=== PATIENT | male | born 1970 | race Caucasian/White ===

== ENCOUNTER → 2019-08-13 13:32 | Outpatient (CLI) | payer BC, SELFPAY | PROVIDERS: PCP Family Medicine; Visit Provider Family Medicine | DX: I10 Essential (primary) hypertension (principal); R06.83 Snoring; E66.9 Obesity, unspecified; G47.33 Obstructive sleep apnea (adult) (pediatric) | CPT/HCPCS: G0399 ==

== ENCOUNTER → 2019-10-31 16:03 | Outpatient (CLI) | payer BC, SELFPAY | PROVIDERS: PCP Family Medicine; Visit Provider Nurse Practitioner Family | DX: G47.33 Obstructive sleep apnea (adult) (pediatric) (principal) | CPT/HCPCS: 94762 ==

== ENCOUNTER → 2019-11-19 16:42 | Outpatient (CLI) | payer BC, SELFPAY ==
[2019-11-19 19:20] LABS: Prostate Specific Ag Screen 1.1 ng/mL (0.0-4.0)
[2019-11-21 15:52] LABS: Estradiol 45.9 pg/mL (7.6-42.6)
== END ==
PROVIDERS: Visit Provider Urology
DX: E34.9 Endocrine disorder, unspecified (principal); Z12.5 Encounter for screening for malignant neoplasm of prostate
CPT/HCPCS: 36415; 82670; G0103

== ENCOUNTER → 2021-01-28 15:57 | Outpatient (CLI) | payer BC, SELFPAY ==
[2021-01-28 17:56] LABS: Alanine Aminotransferase 64 U/L (12-78); Albumin Level 4.7 g/dl (3.5-5.0); Albumin/Globulin Ratio 1.7 (1.1-1.8); Alkaline Phosphatase 51 U/L (38-126); Anion Gap 14.9 mEq/L (5-15); Aspartate Amino Transferase 43 U/L (17-59); Bilirubin,Total 0.3 mg/dl (0.2-1.3); Blood Urea Nitrogen 19 mg/dl (9-20); Calcium 9.4 mg/dl (8.4-10.2); Carbon Dioxide 28 mmol/L (22.0-30.0); Chloride 103 mmol/L (98-107); Estimated Glomerular Filt Rate 71 ml/min (>60); GFR (African American) 86 ML/MIN (>60); Globulin 2.8 g/dL (1.3-3.2); Glucose 97 mg/dl (74-100); Potassium 3.9 mmoL/L (3.5-5.1); Sodium 142 mmol/L (136-145); Total Protein,Serum 7.5 g/dl (6.3-8.2)
[2021-01-28 18:13] LABS: T4 (Thyroxine) 7.2 ug/dl (5.53-11.0)
[2021-01-28 18:27] LABS: Thyroid Stimulating Hormone 2.22 uIU/mL (0.465-4.68)
[2021-01-30 12:24] LABS: Estradiol 36.1 pg/mL (7.6-42.6)
== END ==
PROVIDERS: Visit Provider Urology
DX: E34.9 Endocrine disorder, unspecified (principal)
CPT/HCPCS: 36415; 80053; 82670; 84402; 84403; 84436; 84443

== ENCOUNTER → 2021-11-05 12:09 | Outpatient (CLI) | payer BC, SELFPAY ==
[2021-11-05 13:59] LABS: Adenovirus,PCR Not Detected (NotDetected); Bordetella Pertussis Not Detected (NotDetected); Chlamydophila Pneumoniae, PCR Not Detected (NotDetected); Coronavirus 229E Not Detected (NotDetected); Coronavirus NL63 Not Detected (NotDetected); Coronavirus OC43 Not Detected (NotDetected); Coronovirus HKU1,PCR Not Detected (NotDetected); Human Metapneumovirus Not Detected (NotDetected); Influenza A, PCR Not Detected (NotDetected); Influenza AH1, 2009 Not Detected (NotDetected); Influenza AH1, PCR Not Detected (NotDetected); Influenza AH3,PCR Not Detected (NotDetected); Influenza B, PCR Not Detected (NotDetected); Mycoplasma Pneumoniae, PCR Not Detected (NotDetected); Parainfluenza 1, PCR Not Detected (NotDetected); Parainfluenza 2, PCR Not Detected (NotDetected); Parainfluenza 3, PCR Not Detected (NotDetected); Parainfluenza 4, PCR Not Detected (NotDetected); Respiratory Syncytial Virus Not Detected (NotDetected); Rhinovirus/Enterovirus Not Detected (NotDetected)
[2021-11-05 14:07] LABS: Basophils # 0.1 K/mm3 (0-0.2); Basophils % 1.4 % (0.1-2.0); Eosinophils % 0.5 % (0.1-12.0); Hematocrit 41.2 % (42.0-52.0); Hemoglobin 13.3 g/dL (14.1-18.0); Lymphocytes # 3.2 K/mm3 (0.7-4.5); Lymphocytes % 45.1 % (10-50); Mean Corpuscular HGB Conc 32.2 g/dL (31.8-35.4); Mean Corpuscular Hemoglobin 27.2 pg (27.0-31.2); Mean Corpuscular Volume 84.3 fl (80-94); Mean Platelet Volume 8.1 fl (7.4-10.4); Monocytes # 3.5 K/mm3 (0.1-1.0); Neutrophils # 0.3 K/mm3 (1.8-7.8); Platelet Count 160 K/mm3 (142-424); Red Blood Count 4.89 M/mm3 (4.60-6.20); Red Cell Distribution Width 14.5 % (11.5-17.5); White Blood Count 7.1 K/mm3 (4.8-10.8)
[2021-11-05 14:13] LABS: MANUAL DIFFERENTIAL MANUAL DIFFERENTIAL (MANUAL DIFF)
[2021-11-05 15:43] LABS: Eosinophils % 1 % (0-3); Lymphocytes % 27 % (10-50); Monocytes % 11 % (2-9); Neutrophils % 61 % (42-76); Platelet Estimate Normal; RBC Morphology Normal; Total Cells Counted 100
[2021-11-05 17:01] LABS: Coronavirus 19, PCR Detected (NotDetected)
== END ==
PROVIDERS: PCP Family Medicine; Visit Provider Physician Assistant
DX: U07.1 COVID-19 (principal)
CPT/HCPCS: 36415; 85007; 85025; 87581; 87632; 87798; C9803; U0003; U0005

== ENCOUNTER → 2022-02-02 10:32 | Outpatient (CLI) | payer BC, SELFPAY ==
[2022-02-02 10:38] LABS: MANUAL DIFFERENTIAL MANUAL DIFFERENTIAL (MANUAL DIFF)
[2022-02-02 11:17] LABS: Basophils # 0.1 K/mm3 (0-0.2); Basophils % 1.3 % (0.1-2.0); Eosinophils # 0.2 K/mm3 (0.0-0.4); Eosinophils % 1.8 % (0.1-12.0); Hemoglobin 14.6 g/dL (14.1-18.0); Lymphocytes # 3.4 K/mm3 (0.7-4.5); Lymphocytes % 38.4 % (10-50); Mean Corpuscular HGB Conc 33.2 g/dL (31.8-35.4); Mean Corpuscular Hemoglobin 27.5 pg (27.0-31.2); Mean Corpuscular Volume 82.8 fl (80-94); Mean Platelet Volume 8.8 fl (7.4-10.4); Monocytes # 4.9 K/mm3 (0.1-1.0); Neutrophils # 0.3 K/mm3 (1.8-7.8); Platelet Count 214 K/mm3 (142-424); Red Blood Count 5.32 M/mm3 (4.60-6.20); Red Cell Distribution Width 14.5 % (11.5-17.5); White Blood Count 8.8 K/mm3 (4.8-10.8)
[2022-02-02 11:19] LABS: Neutrophils % 3.5 % (37.0-80.0)
[2022-02-02 11:55] LABS: Alanine Aminotransferase 76 U/L (12-78); Albumin Level 4.4 g/dl (3.5-5.0); Alkaline Phosphatase 55 U/L (38-126); Aspartate Amino Transferase 63 U/L (17-59); Bilirubin,Direct 0.2 mg/dl (0.0-0.4); Bilirubin,Indirect 0.4 mg/dL (0.0-0.9); Bilirubin,Total 0.6 mg/dl (0.2-1.3); Bilirubin,Unconjugated 0.5 mg/dL (0.0-1.1); Total Protein,Serum 7.2 g/dl (6.3-8.2)
[2022-02-02 12:25] LABS: Prostate Specific Ag Screen 1.2 ng/ml (0.0-4.0)
[2022-02-02 14:51] LABS: Eosinophils % 2 % (0-3); Lymphocytes % 13 % (10-50); Monocytes % 24 % (2-9); Neutrophils % 46 % (42-76); Platelet Estimate Normal; Total Cells Counted 100
[2022-02-02 14:52] LABS: Microcytosis 1+
[2022-02-12 11:11] LABS: Testosterone, Total, LC/MS 348.1 ng/dL (264.0-916.0); Testosterone,Free 10.5 pg/mL (7.2-24.0)
== END ==
PROVIDERS: Visit Provider Urology
DX: E29.1 Testicular hypofunction (principal); Z12.5 Encounter for screening for malignant neoplasm of prostate
CPT/HCPCS: 36415; 80076; 84402; 84403; 85007; 85014; 85018; 85048; 85049; G0103

== ENCOUNTER 2024-06-20 17:43 | Emergency (ER) | payer BC, SELFPAY ==
[2024-06-20 18:10] VITALS: BP 136/87; PULSE 99; RESP 22; TEMP 36.8; O2SAT 96; BMI 44.6
[2024-06-20 18:21] LABS: UTC Strep Screen (Rapid) Positive (Negative)
--- NOTE | 2024-06-20 18:30 | ED_ITS ---
Discharge Plan Disposition Patient Disposition: Home, Self-Care Condition: Good Prescriptions Prescriptions: New amoxicillin 875 mg tablet 875 mg PO Q12H Qty: 20 0RF No Action latanoprost 0.005 % drops 1 drp ophthalmic (eye) DAILY meloxicam 7.5 mg tablet 7.5 mg PO QODHS lisinopril-hydrochlorothiazide 10-12.5 mg tablet 1 tab PO DAILY Referrals Follow up/Referrals: Idris Lucio MD [Primary Care Provider] - See instructions Activity Restrictions/Add. Instructions Additional Instructions/Restrictions: *Monitor Temp, Over the counter Motrin or Tylenol as directed/as needed Tylenol every 4 hours and Motrin every 6 hours (as long as your family doctor has told you that you can take it) for fever or pain. and straight to ER if unable to lower temp less than 101.0 after medication given *Warm salt water gargles may help to soothe the throat *Throat Lozenges? *Warm fluids like tea with honey may help to soothe the throat? *Sleep elevated *Humidifier/Vaporizer *If you did not take Penicillin shot or was unable to, start taking antibiotic immediately and make sure that you take it for the FULL length of time although you should start to feel better in 24-48 hours *change toothbrush and toothpaste 24-48 hours after starting to take antibiotics so you do not reinfect yourself Monitor Temp. Tylenol and/or Ibuprofen as needed. ER if fever is no less than 101 despite alternating Tylenol and Ibuprofen * Encourage fluids, water, Gatorade, powerade, pedialyte if infant/toddler/or child *Cold fluids, popsicles and ice cream may feel good on his throat Follow up IMMEDIATELY for new or worsening symptoms or no Noticeable improvement over the next 48-72 hours. 911 for difficulty breathing or swallowing Clinical Impressions Clinical Impression: Strep throat Instructions Patient Instructions: DI for Strep Throat, Strep Throat Print Language Print Language: Kyrgyz Discharge ED Provider: Carissa Lawler [facility] HPI General Stated complaint: body aches,headache,stuffy head,sore throat Mode of Arrival: Ambulatory Source of Information: Patient and Spouse Limitations: No Limitations Time Seen by Provider: 06/20/24 18:37 Description of Symptoms (Recalled from Triage Doc. by RN): PATIENT C/O BODY ACHES, HEADACHE, SORE THROAT AND FEELING LIGHT-HEADED THAT STARTED APPROX 2 WEEKS AGO HEENT Symptoms (Recalled from RN notes): Yes Resp Symptoms (Recalled from RN notes): No Skin Symptoms (Recalled from RN notes): No MS Symptoms (Recalled from RN notes): No Functional Status (Recalled from RN notes): WNL History of Present Illness Provider Complaint: Patient states that he started feeling bad about 2 weeks ago with body aches, chills, nasal congestion and feeling light headed thought he was doing better but today his throat started hurting bad and hurting when he would swallow so this evening he came in to get checked Related Data Home Medications ?Medication ?Instructions ?Recorded ?Confirmed latanoprost 0.005 % eye drops 1 drp ophthalmic (eye) DAILY 06/20/24 06/20/24 lisinopril 10 1 tab PO DAILY 06/20/24 06/20/24 mg-hydrochlorothiazide 12.5 mg tablet meloxicam 7.5 mg tablet 7.5 mg PO QODHS 06/20/24 06/20/24 Previous Rx's ?Medication ?Instructions ?Recorded amoxicillin 875 mg tablet 875 mg PO Q12H #20 tabs 06/20/24 Allergies Allergy/AdvReac Type Severity Reaction Status Date / Time No Known Allergies Allergy Verified 08/17/23 08:41 Worker's Comp Is this a Worker's Comp case?: No [facility] Disclaimer: The information contained in this section may have been updated after the patient was seen, as this information can be updated by other users. Medical History (Updated 06/20/24 @ 18:42 by Carissa Lawler APRN) Glaucoma Hypertension RUDDY (obstructive sleep apnea) Surgical History (Updated 08/17/23 @ 08:43 by Lucy Jose) No pertinent past surgical history Family History Other Cancer Coronary artery disease Hyperlipidemia Hypertension RUDDY (obstructive sleep apnea) Stroke Social History Smoking Status: Former smoker alcohol intake: never substance use type: denies use current occupational status: employed Travel in the last 8 weeks: None household members: spouse and children housing: house ROS Obtained: Yes All systems reviewed & no additional complaints except as documented and Yes Systems reviewed as appropriate & no additional complaints except as documented Constitutional Constitutional: Reports system reviewed and no additional complaints, except as documented, Reports as per HPI, Reports body ache, Reports chills and Reports headache(s) ENT Ears, Nose, Mouth, and Throat: Reports system reviewed and no additional complaints, except as documented, Reports as per HPI, Reports headache(s) and Reports sore throat Cardiovascular Cardiovascular: Reports system reviewed and no additional complaints, except as documented and Reports as per HPI Respiratory Respiratory: Reports system reviewed and no additional complaints, except as documented and Reports as per HPI Gastrointestinal Gastrointestingal: Reports system reviewed and no additional complaints, except as documented and as per HPI Neurologic Neurologic: Reports headache(s) Physical Exam General General appearance: alert and in no apparent distress ENT ENT exam: Present mucous membranes moist Expanded ENT Exam Nose exam: Absent sinus tenderness Throat exam: Present tonsillar erythema (patchy like areas noted) Respiratory Respiratory exam: Present normal lung sounds bilaterally; Absent respiratory distress or wheezes Cardiovascular Cardiovascular exam: Present regular rate, normal rhythm and normal heart sounds Neurological Exam Neurological exam: Present alert, oriented X3 and normal gait Medical Decision Making Denny Inquiry Pt receiving controlled substance: No Denny was queried for this patient: No Vital Signs: 06/20/24 18:10 Temperature 98.2 F Temperature Source Oral Pulse Rate [Right Brachial] 99 H Respiratory Rate 22 Blood Pressure [Right Arm] 136/87 Blood Pressure Mean [Right Arm] 103 Blood Pressure Source [Right Arm] Automatic Cuff Blood Pressure Position [Right Arm] Sitting 02 Sat by Pulse Oximetry 96 Oxygen Delivery Method Room Air Lab Data Lab results reviewed: Yes I reviewed the patient's lab results. Lab Results 06/20/24 18:19: Strep Scn Rapid Clinic Positive A
[2024-06-20 18:43] VITALS: BP 136/87; PULSE 99; RESP 22; TEMP 36.8; O2SAT 96
== END 2024-06-20 18:45 | disposition home or self-care (01) ==
PROVIDERS: Emergency Provider Nurse Practitioner; PCP Family Medicine
DX: J02.0 Streptococcal pharyngitis (principal); R51.9 Headache, unspecified; R42 Dizziness and giddiness; R09.81 Nasal congestion
CPT/HCPCS: 87880; 99204; 99212; G0463

== ENCOUNTER 2025-01-09 13:48 | Emergency (ER) | payer OTHER, SELFPAY ==
[2025-01-09 13:52] VITALS: BP 158/71; PULSE 93; RESP 18; TEMP 36.2; O2SAT 98; BMI 43.9
--- NOTE | 2025-01-09 14:13 | HMH.EDGENADL ---
Discharge Plan Disposition Patient Disposition: Home, Self-Care Condition: Good Prescriptions Prescriptions: No Action cetirizine [Zyrtec] 10 mg tablet 10 mg PO DAILY PRN latanoprost 0.005 % drops 1 drp ophthalmic (eye) DAILY meloxicam 7.5 mg tablet 7.5 mg PO QODHS lisinopril-hydrochlorothiazide 10-12.5 mg tablet 1 tab PO DAILY Referrals Follow up/Referrals: Idris Lucio MD [Primary Care Provider] - See instructions Tito Cuevas DO [Staff Physician] - See instructions (Right knee injury, Worker's Comp.) Clinical Impressions Clinical Impression: Right knee sprain, Work related injury Stand Alone Forms Stand Alone Forms: Work/School Release Instructions Patient Instructions: DI for Knee Sprain Print Language Print Language: Yi Discharge ED Provider: Kedar Santo General Adult HPI <JUANITA Garg - Last Filed: 01/09/25 21:52> General Chief complaint: PAIN Stated complaint: WC- 1030-pain and swelling R knee Time Seen by Provider: 01/09/25 14:13 Mode of Arrival: Wheelchair Source of Information: Patient Description of Symptoms (Recalled from ER Triage Doc. by RN): Pt was stepping off of a skid steer and felt a popping sensation in his right knee at 1030 today History of Present Illness HPI narrative: Patient presents for right knee injury. 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 He was stepping off the machine and extending his right leg to plant and then turned to his left feeling a pop in his left knee. He felt immediate pain and it is continued to hurt him throughout the day. Patient reports its painful to bear weight better when he is sitting. He denies any numbness or tingling loss of motor or sensory. Related Data Home Medications ?Medication ?Instructions ?Recorded ?Confirmed latanoprost 0.005 % eye drops 1 drp ophthalmic (eye) DAILY 06/20/24 08/09/24 lisinopril 10 1 tab PO DAILY 06/20/24 08/09/24 mg-hydrochlorothiazide 12.5 mg tablet meloxicam 7.5 mg tablet 7.5 mg PO QODHS 06/20/24 08/09/24 cetirizine 10 mg tablet (Zyrtec) 10 mg PO DAILY PRN 08/09/24 08/09/24 Allergies Allergy/AdvReac Type Severity Reaction Status Date / Time No Known Allergies Allergy Verified 08/08/24 17:15 PFSH <JUANITA Garg - Last Filed: 01/09/25 21:52> [facility] Disclaimer: The information contained in this section may have been updated after the patient was seen, as this information can be updated by other users. Medical History Glaucoma Hypertension Better today, reports on antihypertensive RUDDY (obstructive sleep apnea) Moderate to severe RUDDY, excellent compliance with AutoPap with ongoing symptomatic improvement. Surgical History No pertinent past surgical history Family History Other Cancer Coronary artery disease Hyperlipidemia Hypertension RUDDY (obstructive sleep apnea) Stroke Social History Smoking Status: Unknown if ever smoked alcohol intake: never substance use type: denies use current occupational status: employed Travel in the last 8 weeks: None household members: spouse and children housing: house Other Medical History Have you received the Pneumonia Vaccine: No <JUANITA Garg - Last Filed: 01/09/25 21:52> ROS Obtained: Yes Systems reviewed as appropriate & no additional complaints except as documented Physical Exam <JUANITA Garg - Last Filed: 01/09/25 21:52> General General appearance: alert and in no apparent distress Respiratory Respiratory exam: Present normal lung sounds bilaterally Cardiovascular Cardiovascular exam: Present regular rate Neurological Exam Neurological exam: Present alert and oriented X3 Medical Decision Making <JUANITA Garg - Last Filed: 01/09/25 21:52> Medical Records Medical records reviewed: Yes I reviewed the patient's medical records. Screening: Per USPSTF and CDC recommendations, given the prevalence of disease in our region, it is our hospital?s policy to screen for HIV and viral Hepatitis for all patients aged 18 and over and those with ongoing risk factors. Denny Inquiry Pt receiving controlled substance: No Vital Signs: 01/09/25 13:52 01/09/25 15:58 01/09/25 17:45 Temperature 97.1 F L 98.2 F Temperature Source Temporal Artery Scan Pulse Rate 85 80 Pulse Rate [Right] 93 H Respiratory Rate 18 20 Blood Pressure 136/70 148/70 H Blood Pressure [Right Arm] 158/71 H Blood Pressure Mean [Right Arm] 100 Blood Pressure Source Blood Pressure Source [Right Arm] Automatic Cuff Blood Pressure Position [Right Arm] Sitting 02 Sat by Pulse Oximetry 98 97 Oxygen Delivery Method Room Air Room Air Room Air 01/09/25 17:47 Temperature 98.2 F Temperature Source Oral Pulse Rate 84 Pulse Rate [Right] Respiratory Rate 18 Blood Pressure 132/77 Blood Pressure [Right Arm] Blood Pressure Mean [Right Arm] Blood Pressure Source Automatic Cuff Blood Pressure Source [Right Arm] Blood Pressure Position [Right Arm] 02 Sat by Pulse Oximetry Oxygen Delivery Method Room Air Orders (Tests/Meds): ORDERS Category Date Time Status CT knee RT wo con Stat Cat Scan 01/09/25 15:59 Completed Knee XR right 3 views [XR knee RT 3V] Stat Exams 01/09/25 14:22 Completed Medical Decision Narrative: In summary patient is a 54-year-old male who presents to the emergency department for evaluation of right knee injury. Patient is hemodynamically stable upon arrival, afebrile. Physical exam is remarkable for tenderness to palpation about the right knee primarily along the joint lines anteriorly and posteriorly. Patient is neurovascular intact distally. Has painful range of motion thus full joint testing not performed to the patient's discomfort. He has full range of motion of the ankle and foot with good DP PT pulses. There is no palpable bony deformity however there appears to be joint fullness indicative of an effusion.. Differential diagnosis includes fracture versus soft tissue injury. Initial workup will be conducted with plain film x-ray initially. Initial interventions include acetaminophen and ibuprofen. Initial workup reviewed by me and my informed interpretation of his plain film chest x-ray shows no evidence of acute bony injury however does show a joint effusion. Given this I have ordered a CT scan noncontrast of the knee joint. My informal TURB rotation of the that imaging does not show any evidence of acute fracture but shows a small joint effusion. Upon repeat evaluation patient is able to bear weight but is very painful. Given this I have given the patient nonweightbearing instructions an Wilman wrap and referred him to orthopedics for further evaluation and care. Patient to be weightbearing as tolerated with his crutches no bending or twisting. Patient to call in the morning for his orthopedics appointment. <Kedar Santo MD - Last Filed: 01/11/25 07:15> Vital Signs: 01/09/25 13:52 01/09/25 15:58 01/09/25 17:45 Temperature 97.1 F L 98.2 F Temperature Source Temporal Artery Scan Pulse Rate 85 80 Pulse Rate [Right] 93 H Respiratory Rate 18 20 Blood Pressure 136/70 148/70 H Blood Pressure [Right Arm] 158/71 H Blood Pressure Mean [Right Arm] 100 Blood Pressure Source Blood Pressure Source [Right Arm] Automatic Cuff Blood Pressure Position [Right Arm] Sitting 02 Sat by Pulse Oximetry 98 97 Oxygen Delivery Method Room Air Room Air Room Air 01/09/25 17:47 Temperature 98.2 F Temperature Source Oral Pulse Rate 84 Pulse Rate [Right] Respiratory Rate 18 Blood Pressure 132/77 Blood Pressure [Right Arm] Blood Pressure Mean [Right Arm] Blood Pressure Source Automatic Cuff Blood Pressure Source [Right Arm] Blood Pressure Position [Right Arm] 02 Sat by Pulse Oximetry Oxygen Delivery Method Room Air Orders (Tests/Meds): ORDERS Category Date Time Status CT knee RT wo con Stat Cat Scan 01/09/25 15:59 Completed Knee XR right 3 views [XR knee RT 3V] Stat Exams 01/09/25 14:22 Completed Medical Decision Narrative: In summary patient is a 54-year-old male who presents to the emergency department for evaluation of right knee injury. Patient is hemodynamically stable upon arrival, afebrile. Physical exam is remarkable for tenderness to palpation about the right knee primarily along the joint lines anteriorly and posteriorly. Patient is neurovascular intact distally. Has painful range of motion thus full joint testing not performed to the patient's discomfort. He has full range of motion of the ankle and foot with good DP PT pulses. There is no palpable bony deformity however there appears to be joint fullness indicative of an effusion.. Differential diagnosis includes fracture versus soft tissue injury. Initial workup will be conducted with plain film x-ray initially. Initial interventions include acetaminophen and ibuprofen. Initial workup reviewed by me and my informed interpretation of his plain film chest x-ray shows no evidence of acute bony injury however does show a joint effusion. Given this I have ordered a CT scan noncontrast of the knee joint. My informal TURB rotation of the that imaging does not show any evidence of acute fracture but shows a small joint effusion. Upon repeat evaluation patient is able to bear weight but is very painful. Given this I have given the patient nonweightbearing instructions an Wilman wrap and referred him to orthopedics for further evaluation and care. Patient to be weightbearing as tolerated with his crutches no bending or twisting. Patient to call in the morning for his orthopedics appointment. I was consulted by the SITA, and we discussed the complexity of the problems being addressed. I approved the treatment and management plan for this patient's care in the Emergency Department, thus performing a substantive portion of the medical decision making. Kedar Santo MD Critical Care <JUANITA Garg - Last Filed: 01/09/25 21:52> Critical Care Time Critical Care Time: No
--- NOTE | 2025-01-09 14:22 | XR_ITS ---
FINAL REPORT CLINICAL HISTORY: Twisted knee hurts to bear weight, HEARD A POP FINDINGS: AP, lateral and oblique views of the right knee were obtained. There is no prior exam for comparison. There is no acute osseous abnormality of the right knee. The joint space is preserved. There may be a small joint effusion. The soft tissues are otherwise unremarkable. IMPRESSION: Possible small joint effusion without acute osseous abnormality identified. Consider MRI if pain persists. Reviewed, Interpreted and Dictated by Antonieta Mosquera MD Transcribed by Ivonne Herron Authenticated and [facility]
[2025-01-09 15:58] VITALS: BP 136/70; PULSE 85; O2SAT 97
--- NOTE | 2025-01-09 15:59 | CT_ITS ---
FINAL REPORT TECHNIQUE: Thin section axial images were obtained through the lower extremity without contrast. Reconstruction images were obtained from the axial data. Exam was performed using dose reduction technique. CLINICAL HISTORY: INJURY, STEPPED WRONG, RT KNEE PAIN FINDINGS: There is no acute fracture. There is mild degenerative joint disease. There is mild lateral patellar subluxation without dislocation. A moderate joint effusion is present. There is prepatellar soft tissue edema. Remaining soft tissues are without acute abnormality. IMPRESSION: Moderate joint effusion without fracture. Consider MRI for evaluation of internal derangement, if indicated. Reviewed, Interpreted and Dictated by Antonieta Mosquera MD Transcribed by Ashwini Gay Authenticated and [facility]
[2025-01-09 17:45] VITALS: BP 148/70; PULSE 80; RESP 20; TEMP 36.8; O2SAT 98
[2025-01-09 17:47] VITALS: BP 132/77; PULSE 84; RESP 18; TEMP 36.8; O2SAT 97
== END 2025-01-09 18:10 | disposition home or self-care (01) ==
PROVIDERS: Emergency Provider Emergency Medicine; PCP Family Medicine
DX: S83.91XA Sprain of unspecified site of right knee, initial encounter (principal); M25.561 Pain in right knee; Y99.0 Civilian activity done for income or pay
CPT/HCPCS: 73562; 73700; 99284

== ENCOUNTER 2025-01-29 10:12 | Outpatient (RCR) | payer OTHER, SELFPAY | END 2025-01-29 23:59 | disposition home or self-care (01) | LOC: PT 10:12 | PROVIDERS: Visit Provider Physician Assistant | DX: M23.91 Unspecified internal derangement of right knee (principal) | CPT/HCPCS: 97760 ==

== ENCOUNTER 2025-05-27 10:49 | Outpatient (CLI) | payer OTHER, SELFPAY ==
--- OUTSIDE RECORDS SUMMARY | 2024-10-04 10:45 | XMS_ITS ---
Author Organization [facility] Address [address] [facility] [address] [place] [id number] Care Team Providers Care Food Taster Name Role Phone Jumana Frank Primary Care Provider [phone] Taco Lucioian Unavailable [phone] Allergies No Known Allergies Results Component Value Reference Range Notes CBC Fingerstick (in house) Reviewed date:10/04/2024 04:35:08 PM Interpretation: Performing Lab: Notes/Report: wbc 9.0 3.5 - 10 lym 25.9% 15 - 50 mid 6.5% 2 - 15 gran 67.6% 35 - 80 rbc 5.30 3.5 - 5.5 hgb 14.3 11.5 - 16.5 hct 42.1 35 - 55 mcv 79.4 75 - 100 mch 26.9 25 - 35 mchc 33.9 31 - 38 plat 188 100 - 400 REASON FOR VISIT cough Medications Medication SIG (Take, Route, Frequency, Duration) Notes Start Date End Date Status Promethazine-DM 6.25-15 MG/5ML 5 ml as needed Orally every 6 hrs 10/04/2024 Active Zithromax Z-Thompson 250 MG as directed Orall y once daily; Duration: 5 day(s) 10/04/2024 Active Sildenafil Citrate 20 MG 1 to 5 tab(s) o rally once daily as needed Active Meloxicam 7.5 MG TAKE ONE TABLET BY M OUTH ONCE A DAY Active Lisinopril-hydroCHLOROthia zide 10-12.5 MG 1 tab(s) orally once a day Active Furosemide 20 MG 1 tab(s) orally ever y other day; Duration: 90 days Active Vital Signs Blood pressure systolic 130 mm Hg 10/04/20 24 Blood pressure diastolic 80 mm Hg 024 Heart Rate 101 /min 10/04/2024 Height 71.50 in 10/04/2024 Weight 316.2 lbs 10/04/2024 BMI 43.48 kg/m2 10/04/2024 Encounters Encounter Location Date Provider Diagnosis [facility] [address] [facility] [address] [facility] [address] [place] [id number] 10/04/2024 Idris Lucio Acute cough R 05.1 Assessments Encounter Date Diagnosis (ICD Code) Assessment Notes Treatment Notes Treatment Clinical Notes Section Notes 10/04/2024 Acute cough (ICD-10 - R05.1) Plan Of Treatment Medication Medication Name Sig Start Date Stop Date Notes Promethazine-DM 6.25-15 MG/5ML 5 ml as n eeded Orally every 6 hrs 10/04/2024 Zithromax Z-Thompson 250 MG as directed Orall y once daily; Duration: 5 day(s) 10/04/2024 Next Appt Details Follow Up: prn, Reason: Provider Name:Idris Cummings ry, 11/07/2025 09:45:00 AM, [address] [facility] [address] [facility], [address], [place], [id number], Progress Notes * HELENA ANNDOB:1970 ([age] yo M)Acc No.[id number]:10/04/2024 Progress Notes Patient: HELENA CASTILLO Provider: Félix Lucio M.D. :1970 A ge:54 Y S ex:Male Date:10/04/2024 Address:[address] [place], [place] [address] [id number] Pcp:Jumana Frank Subjective: * Chief Complaints: * 1 . Cough. * HPI: E NT/respiratory: 54 year old male presents with c/o cough P t complains of dry without any sputum production cough for about 2 weeks. Pt states cough is worse at night and he can hardly lay down because he cannot stop coughing. Denies : Fever. D enies : body aches. * ROS: D ERMATOLOGY: no R monica. n o H rene. G ASTROENTEROLOGY: no N ausea. n o V omiting. U ROLOGY: no D ifficulty urinating. n o B lood in urine. * Medical History: H ypertension, Sleep Apnea, Testosterone Deficiency, s/p Urology evaluation 2019, Glaucoma, Dx: 2020, Hypertriglyceridemia, HDL Deficiency. * Surgical History: D enies Past Surgical History. * Hospitalization/Major Diagno stic Procedure: D enies Past Hospitalization. * Family History: F ather: alive. M other: alive. 1 son(s) . . * Social History: C URRENT TOBACCO USE: No . M arital Status: . Past smoking status: previous history, Pt states that he smoked for 12 years, 3 ppd average. * Medications: T aking Furosemide 20 MG Tablet 1 tab(s) orally every other day , Taking Sildenafil Citrate 20 MG Tablet 1 to 5 tab(s) orally once daily as needed , Taking Lisinopril-hydroCHLOROthiazide 10-12.5 MG Tablet 1 tab(s) orally once a day , Taking Meloxicam 7.5 MG Tablet TAKE ONE TABLET BY MOUTH ONCE A DAY , Medication List reviewed and reconciled with the patient * Allergies: N .K.D.A. Objective: * Vitals: W t:316.2, Temp:98.0, BP:130/80, HR:101, O2 Sat:93% on RA, Nurse:lin, Ht: 71.50, BMI:43.48. * Examination: E NT/Respiratory: General Appearance: N AD. E yes: P ERRLA, sclera clear. O ral cavity : erythema without exudate on pharynx. H eart : R RR, normal S1 S2. L ungs: c lear to auscultation bilaterally. Assessment: * Assessment: 1. A cute cough - R05.1 (Primary) Plan: * Treatment: Value Reference Range w bc 9.0 3.5 - 10 * l ym 25.9% 15 - 50 * m id 6.5% 2 - 15 * g ran 67.6% 35 - 80 * r bc 5.30 3.5 - 5.5 * h gb 14.3 11.5 - 16.5 * h ct 42.1 35 - 55 * m cv 79.4 75 - 100 * m ch 26.9 25 - 35 * m chc 33.9 31 - 38 * p lat 188 100 - 400 * ValenteHarrisYesenia 10/04/2024 2:45:5 5 PM > , Provider reviewed results while patient in office. * Procedure Codes: 3 6416 CAPILLARY BLOOD DRAW, 64937 CBC WITH AUTO DIFF * Follow Up: p rn * Images: Billing Information: * Visit Code: 49929 Office Visit, Est Pt., Level 3. * Procedure Codes: 02526 CAPILLARY BLOOD DRAW. 19156 CBC WITH AUTO DIFF. * Electronic signature of Hafsa Lucio MD on 05/27/2025 at 10:55 AM EDT Sign off status: Pending * Provider: Félix Lucio M.D. Date: 1 12/05/2023 Generated for Delphine al/Shireen/eTarturoitting on: 0 05/27/2025 10:55 AM EDT History and Physical Notes * HPI (History of Present Illness) Category Sub-Category Detail Notes Category Not es ENT/respiratory cough Pt complains of dry without any sputum production cough for about 2 weeks. Pt states cough is worse at night and he can hardly lay down because he cannot stop coughing Fever body aches Examination Category Sub-Category Detail Notes Category Not es ENT/Respiratory Oral cavity : erythema without exudate on pharynx Heart : RRR, normal S1 S2 Lungs: clear to auscultatio n bilaterally General Appearance: NAD Eyes: PERRLA, sclera clear
--- OUTSIDE RECORDS SUMMARY | 2024-11-08 05:00 | XMS_ITS ---
Author Organization [facility] Address [address] [place] [id number] Care Team Providers Care Barge Pilot Name Role Phone Jumana Frank Primary Care Provider Idris Lucio Unavailable [phone] Allergies No Known Allergies Results Component Value Reference Range Notes Glucose (In-House) Reviewed date:11/11/2024 08:48:33 AM Interpretation:126 Performing Lab: Notes/Report: 126 blood glucose 126 74 - 106 mg/dL Glycohemoglobin A1c (in hous e) Reviewed date:11/11/2024 08:48:33 AM Interpretation:5.7 Performing Lab: Notes/Report: 5.7 glycohemoglobin 5.7% 5 - 6.5 % P-Comprehensive Metabolic Pa isael (CMP) Reviewed date:11/11/2024 08:48:33 AM Interpretation:gluc 108 Performing Lab: Notes/Report: Test performed by [facility] [address] [place] [address] , [address], [place] [address] Aroldo Campbell MD, Lottery Office Manager CLIA: [id number] Sodium 139 135-145 mmol/L Potassium 4.2 3.5-5.3 mmol/L Chloride 101 97-108 mmol/L CO2 27 22-32 mmol/L Glucose 108 65-99 mg/dL BUN 15 6-20 mg/dL Creatinine 1.09 0.70-1.30 mg/dL Calcium 9.5 8.6-10.4 mg/dL eGFR by Creatinine 81 >59 mL/min/1.73m2 Protein 7.8 6.0-8.3 g/dL Albumin 4.8 3.5-5.3 g/dL Alkaline Phosphatase 67 40-129 IU/L ALT (SGPT) 41 <5-55 IU/L AST (SGOT) 29 <5-46 IU/L Bilirubin, Total 0.8 <0.2-1.2 mg/dL A/G Ratio 1.6 1.1-2.5 P-Lipid Panel Reviewed date:11/11/2024 08:48:33 AM Interpretation:trigs 164, hdl 34 Performing Lab: Notes/Report: Test performed by [facility] [address] , [address], [place] [address] Aroldo Campbell MD, Lottery Office Manager CLIA: [id number] Cholesterol 162 <200 mg/dL Triglycerides 164 <150 mg/dL HDL Cholesterol 34 >39 mg/dL Cholesterol / HDL Ratio 4.76 0.00-4.99 Ratio Non-HDL Cholesterol 128 <130 mg/dL LDL Cholesterol (Calculation) 95 <130 mg/dL LDL Cholesterol Levels* Less than 100 mg/dL Optimal 100 to 129 mg/dL Near Optimal/ Above Optimal 130 to 159 mg/dL Borderline High 160 to 189 mg/dL High 190 mg/dL and above Very High * Categories as recommended by the 2004 ATPIII guidelines LDL/HDL Ratio 2.8 <3.3 Ratio LDL Cholesterol Patient History Test Date: 10/28/2022 LDL Results: 119 Units: mg/dL % Change: - Test Date: 11/03/2023 LDL Results: 94 Units: mg/dL % Change: -21% Test Date: 11/08/2024 LDL Results: 95 Units: mg/dL % Change: +1% P-PSA Reviewed date:11/11/2024 08:48:33 AM Interpretation: Normal Performing Lab: Notes/Report: Test performed by [facility] [place] , [address], [place] [address] Aroldo Campbell MD, Lottery Office Manager CLIA: [id number] PSA 1.32 <4.00 ng/mL Please note this is an ultrasensitive PSA assay with a lower limit of detection of 0.014 ng/mL. This test is performed by the [employer] ECLIA methodology. Values obtained with different assay methods or kits cannot be directly compared. P-TSH Reviewed date:11/11/2024 08:48:33 AM Interpretation: Normal Performing Lab: Notes/Report: Test performed by [facility] [place] , [address], [place] [address] Aroldo Campbell MD, Lottery Office Manager CLIA: [id number] TSH 3.31 0.43-5.25 mU/L P-Microalbumin/Creatinine, R andom Urine Sample Reviewed date:11/11/2024 08:48:33 AM Interpretation: Normal Performing Lab: Notes/Report: Test performed by [facility] [address] [place], [place] [address] [place] , [address], [place] [address] Aroldo Campbell MD, Lottery Office Manager CLIA: [id number] Albumin/Creatinine Ratio, Urine <4.4 0-30 ug/m g Microalbumin, Urine, Random <0.3 Creatinine, Urine 67.9 REASON FOR VISIT 6 months Medications Medication SIG (Take, Route, Frequency, Duration) Notes Start Date End Date Status Sildenafil Citrate 20 MG 1 to 5 tab(s) o rally once daily as needed Active Meloxicam 7.5 MG TAKE ONE TABLET BY M OUTH ONCE A DAY; Duration: 90 days Active Lisinopril-hydroCHLOROthia zide 10-12.5 MG 1 tab(s) orally once a day; Duration: 90 days Active Lisinopril-hydroCHLOROthia zide 10-12.5 MG 1 tab(s) orally once a day Active Furosemide 20 MG 1 tab(s) orally ever y other day; Duration: 90 days Active Vital Signs Blood pressure systolic 118 mm Hg 11/08/19 25 Blood pressure diastolic 78 mm Hg 025 Heart Rate 74 /min 11/08/2024 Height 71.50 in 11/08/2024 Weight 316.6 lbs 11/08/2024 BMI 43.54 kg/m2 11/08/2024 Encounters Encounter Location Date Provider Diagnosis [facility] [address] [id number] 11/08/2024 Idris Lucio Essential hypertensi on I10 ; IFG (impaired fasting glucose) R73.01 ; Hypertriglyceridemia E78.1 ; Sleep apnea, unspecified type G47.30 ; Morbid obesity E66.01 and Prostate cancer screening Z12.5 Assessments Encounter Date Diagnosis (ICD Code) Assessment Notes Treatment Notes Treatment Clinical Notes Section Notes 11/08/2024 Essential hypertensi on (ICD-10 - I10) 11/08/2024 IFG (impaired fastin g glucose) (ICD-10 - R73.01) 11/08/2024 Hypertriglyceridemia (ICD-10 - E78.1) 11/08/2024 Sleep apnea, unspeci fied type (ICD-10 - G47.30) 11/08/2024 Morbid obesity (ICD- 10 - E66.01) 11/08/2024 Prostate cancer screening (ICD-10 - Z12.5) Plan Of Treatment Medication Medication Name Sig Start Date Stop Date Notes Meloxicam 7.5 MG TAKE ONE TABLET BY M OUTH ONCE A DAY; Duration: 90 days Lisinopril-hydroCHLOROthiazi de 10-12.5 MG 1 tab(s) orally once a day; Duration: 90 days Furosemide 20 MG 1 tab(s) orally ever y other day; Duration: 90 days Next Appt Details Follow Up: 6 Months, Reason: Provider Name:Idris Cummings ry, 11/07/2025 09:45:00 AM, [address], [address], [place], [place], [id number], Progress Notes * HELENA ANNDOB:1970 ([age] yo M)Acc No.[id number]:11/08/2024 Progress Notes Patient: HELENA CASTILLO Provider: Félix Lucio M.D. :1970 A ge:54 Y S ex:Male Date:11/08/2024 Address:[address] [place] [address], [facility] Pcp:Jumana Frank Subjective: * Chief Complaints: * 1 . 6 months. * HPI: C ardiology: 54 year old male presents with c/o Blood Pressure Elevated P t here for 6 mo f/u on hypertension, states he is doing well and does not have any concerns. c/o Hyperlipidemia P t is fasting today. * ROS: D ERMATOLOGY: no R monica. [...] TABLET BY MOUTH ONCE A DAY , Discontinued Zithromax Z-Thompson 250 MG Tablet as directed Orally once daily , Discontinued Promethazine-DM 6.25-15 MG/5ML Syrup 5 ml as needed Orally every 6 hrs , Medication List reviewed and reconciled with the patient * Allergies: N .K.D.A. Objective: * Vitals: W t:316.6, Temp:97.9, BP:118/78, HR:74, Nurse:lin, Ht: 71.50, BMI:43.54. * Examination: C ardiology: General Appearance: p leasant, NAD. H EENT: u nremarkable. H eart sounds: R RR, normal S1, S2. M urmur, click , gallop: n one. L ungs: c lear, no rales or wheezes. E xtremities: n o leg edema. P eripheral pulses:? 2 plus bilateral. Assessment: * Assessment: 1. E ssential hypertension - I10 (Primary) 2 . I FG (impaired fasting glucose) - R73.01 3 . H ypertriglyceridemia - E78.1 4 . S leep apnea, unspecified type - G47.30 5 . M orbid obesity - E66.01 6 .?Prostate cancer screening - Z12.5 Plan: * Treatment: Value Reference Range A /G Ratio 1.6 1.1-2.5 - * A lbumin 4.8 3.5-5.3 - g/dL * A lkaline Phosphatase 67 40-129 - IU/L * A LT (SGPT) 41 <5-55 - IU/L * A ST (SGOT) 29 <5-46 - IU/L * B ilirubin, Total 0.8 <0.2-1.2 - mg/dL * B UN 15 6-20 - mg/dL * C alcium 9.5 8.6-10.4 - mg/dL * C hloride 101 97-108 - mmol/L * C O2 27 22-32 - mmol/L * C reatinine 1.09 0.70-1.30 - mg/dL * G lucose 108 H 65-99 - mg/dL * P otassium 4.2 3.5-5.3 - mmol/L * S odium 139 135-145 - mmol/L * P rotein 7.8 6.0-8.3 - g/dL * e GFR by Creatinine 81 >59 - mL/min/1.73m2 * Misty [place] 11/11/2024 8:48: 28 AM >See phone encounter ?LAB: P-Microalbumin/Creatinine, Random Urine Sample (Collection Date & Time - 11/08/2024 08:50 AM)?Normal* Value Reference Range A lbumin/Creatinine Ratio, Urine <4.4 0-30 - ug /mg * C reatinine, Urine 67.9 - mg/dL * M icroalbumin, Urine, Random <0.3 - mg/dL * Misty [place] 11/11/2024 8:48: 28 AM >See phone encounter 2.?IFG (impaired fasting glucose)?LAB: P-Comprehensive Metabolic Panel (CMP) (Collection Date & Time - 11/08/2024 08:50 AM)?gluc 108* Value Reference Range A /G Ratio 1.6 1.1-2.5 - * A lbumin 4.8 3.5-5.3 - g/dL * A lkaline Phosphatase 67 40-129 - IU/L * A LT (SGPT) 41 <5-55 - IU/L * A ST (SGOT) 29 <5-46 - IU/L * B ilirubin, Total 0.8 <0.2-1.2 - mg/dL * B UN 15 6-20 - mg/dL * C alcium 9.5 8.6-10.4 - mg/dL * C hloride 101 97-108 - mmol/L * C O2 27 22-32 - mmol/L * C reatinine 1.09 0.70-1.30 - mg/dL * G lucose 108 H 65-99 - mg/dL * P otassium 4.2 3.5-5.3 - mmol/L * S odium 139 135-145 - mmol/L * P rotein 7.8 6.0-8.3 - g/dL * e GFR by Creatinine 81 >59 - mL/min/1.73m2 * Misty [place] 11/11/2024 8:48: 28 AM >See phone encounter ?LAB: Glucose (In-House) (Collection Date & Time - 11/08/2024)?126* Value Reference Range b lood glucose 126 74 - 106 mg/dL * Harris Victorira 11/08/2024 12:03:5 8 PM > Misty [place] 11/11/2024 8:48:28 AM >See phone encounter ?LAB: Glycohemoglobin A1c (in house) (Collection Date & Time - 11/08/2024)? 5.7* Value Reference Range g lycohemoglobin 5.7% 5 - 6.5 % * Harris Victorira 11/08/2024 12:04:2 0 PM > Misty [place] 11/11/2024 8:48:28 AM >See phone encounter 3.?Hypertriglyceridemia?LAB: P-Comprehensive Metabolic Panel (CMP) (Collection Date & Time - 11/08/2024 08:50 AM)?gluc 108* Value Reference Range A /G Ratio 1.6 1.1-2.5 - * A lbumin 4.8 3.5-5.3 - g/dL * A lkaline Phosphatase 67 40-129 - IU/L * A LT (SGPT) 41 <5-55 - IU/L * A ST (SGOT) 29 <5-46 - IU/L * B ilirubin, Total 0.8 <0.2-1.2 - mg/dL * B UN 15 6-20 - mg/dL * C alcium 9.5 8.6-10.4 - mg/dL * C hloride 101 97-108 - mmol/L * C O2 27 22-32 - mmol/L * C reatinine 1.09 0.70-1.30 - mg/dL * G lucose 108 H 65-99 - mg/dL * P otassium 4.2 3.5-5.3 - mmol/L * S odium 139 135-145 - mmol/L * P rotein 7.8 6.0-8.3 - g/dL * e GFR by Creatinine 81 >59 - mL/min/1.73m2 * Misty Lancaster 11/11/2024 8:48: 28 AM >See phone encounter ?LAB: P-Lipid Panel (Collection Date & Time - 11/08/2024 08:50 AM)?trigs 164, hdl 34* Value Reference Range C holesterol / HDL Ratio 4.76 0.00-4.99 - Ratio * C holesterol 162 <200 - mg/dL * H DL Cholesterol 34 L >39 - mg/dL * L DL Cholesterol (Calculation) 95 <130 - mg/d L * L DL/HDL Ratio 2.8 <3.3 - Ratio * N on-HDL Cholesterol 128 <130 - mg/dL * T riglycerides 164 H <150 - mg/dL * Misty [place] 11/11/2024 8:48: 28 AM >See phone encounter ?LAB: P-TSH (Collection Date & Time - 11/08/2024 08:50 AM)?Normal* Value Reference Range T SH 3.31 0.43-5.25 - mU/L * Misty Lancaster 11/11/2024 8:48: 28 AM >See phone encounter 4.?Prostate cancer screening?LAB: P-PSA (Collection Date & Time - 11/08/2024 08:50 AM)?Normal* Value Reference Range P SA 1.32 <4.00 - ng/mL * Misty Lancaster 11/11/2024 8:48: 28 AM >See phone encounter 5.?Others? Refill Meloxicam Tablet, 7.5 MG, TAKE ONE TABLET BY MOUTH ONCE A DAY, 90 days, 90, Refills 1.? * Procedure Codes: 8 2950 GLUCOSE TEST, [address] GLYCATED HEMOGLOBIN TEST, Modifiers: QW * Follow Up: 6 Months * Images: Billing Information: * Visit Code: 44499 Office Visit, Est Pt., Level 4. * Procedure Codes: 24650 GLUCOSE TEST. 81118 GLYCATED HEMOGLOBIN TEST. Modifiers: QW * Electronic signature of Hafsa Lucio MD on 05/27/2025 at 10:55 AM EDT Sign off status: Pending * Provider: Félix Lucio M.D. Date: 0 11/08/2024 Generated for Delphine al/Shireen/eTransmitting on: 0 05/27/2025 10:55 AM EDT History and Physical Notes * HPI (History of Present Illness) Category Sub-Category Detail Notes Category Not es Cardiology Blood Pressure Elevated Pt here for 6 mo f/u on hypertension, states he is doing well and does not have any concerns Hyperlipidemia Pt is fasting today Examination Category Sub-Category Detail Notes Category Not es Cardiology Lungs: clear, no rales or wheezes HEENT: unremarkable Heart sounds: RRR, normal S1, S2 Extremities: no leg edema Murmur, click , gallop: none Peripheral pulses: 2 plus bilateral General Appearance: pleasant, NAD
--- OUTSIDE RECORDS SUMMARY | 2025-05-09 05:15 | XMS_ITS ---
Author Organization [facility] Address [address] [place] [id number] Care Team Providers Care News Videographer Name Role Phone Jumana Frank Primary Care Provider Idris Lucio Unavailable [phone] Allergies No Known Allergies Results Component Value Reference Range Notes Glucose (In-House) Reviewed date:05/09/2025 02:56:55 PM Interpretation:116 Performing Lab: Notes/Report: 116 blood glucose 116 74 - 106 mg/dL Glycohemoglobin A1c (in hous e) Reviewed date:05/09/2025 02:56:46 PM Interpretation:5.9 Performing Lab: Notes/Report: 5.9 glycohemoglobin 5.9% 5 - 6.5 % P-Comprehensive Metabolic Pa isael (CMP) Reviewed date:05/13/2025 09:16:35 AM Interpretation:Glu 102 Performing Lab: Notes/Report: Test performed by [employer] [facility] , [address], [place] [address] Aroldo Campbell MD, Cook Mess CLIA: [id number] Sodium 140 135-145 mmol/L Potassium 4.1 3.5-5.3 mmol/L Chloride 101 97-108 mmol/L CO2 26 20-32 mmol/L Glucose 102 65-99 mg/dL BUN 16 6-20 mg/dL Creatinine 1.09 0.70-1.30 mg/dL Calcium 9.8 8.6-10.4 mg/dL eGFR by Creatinine 81 >59 mL/min/1.73m2 Protein 7.8 6.0-8.3 g/dL Albumin 4.8 3.5-5.3 g/dL Alkaline Phosphatase 68 40-129 IU/L ALT (SGPT) 33 <5-55 IU/L AST (SGOT) 24 <5-46 IU/L Bilirubin, Total 0.7 <0.2-1.2 mg/dL A/G Ratio 1.6 1.1-2.5 P-Lipid Panel Reviewed date:05/13/2025 09:16:36 AM Interpretation:Trigs 281, HDL 34, Chol/HDL 5.59, Non-HDL 156 Performing Lab: Notes/Report: Test performed by [employer] [address] [place] [address] , [place] [address] Aroldo Campbell MD, Cook Mess CLIA: [id number] Cholesterol 190 <200 mg/dL Triglycerides 281 <150 mg/dL HDL Cholesterol 34 >39 mg/dL Cholesterol / HDL Ratio 5.59 0.00-4.99 Ratio Non-HDL Cholesterol 156 <130 mg/dL LDL Cholesterol (Calculation) 100 <130 mg/dL LDL Cholesterol Levels* Less than 100 mg/dL Optimal 100 to 129 mg/dL Near Optimal/ Above Optimal 130 to 159 mg/dL Borderline High 160 to 189 mg/dL High 190 mg/dL and above Very High * Categories as recommended by the 2004 ATPIII guidelines LDL/HDL Ratio 2.9 <3.3 Ratio LDL Cholesterol Patient History Test Date: 11/03/2023 LDL Results: 94 Units: mg/dL % Change: -21% Test Date: 11/08/2024 LDL Results: 95 Units: mg/dL % Change: +1% Test Date: 05/09/2025 LDL Results: 100 Units: mg/dL % Change: +5% REASON FOR VISIT 6 month Medications Medication SIG (Take, Route, Frequency, Duration) Notes Start Date End Date Status Lisinopril-hydroCHLOROthia zide 10-12.5 MG 1 tab(s) orally once a day; Duration: 90 days Active Sildenafil Citrate 20 mg TAKE 1-5 TABLETS orally daily As needed Active Furosemide 20 MG 1 tab(s) orally ever y other day; Duration: 90 days Active Meloxicam 7.5 mg TAKE ONE TABLET BY M OUTH ONCE A DAY; Duration: 90 days Active Vital Signs Blood pressure systolic 122 mm Hg 05/09/20 25 Blood pressure diastolic 78 mm Hg 025 Heart Rate 86 /min 05/09/2025 Height 71.50 in 05/09/2025 Weight 312 lbs 05/09/2025 BMI 42.9 kg/m2 05/09/2025 Encounters Encounter Location Date Provider Diagnosis [facility] [address] [facility] [address] [place], [place] [id number] 05/09/2025 Idris Medway Essential hypertensi on I10 ; IFG (impaired fasting glucose) R73.01 ; Hypertriglyceridemia E78.1 and Colon cancer screening Z12.11 Assessments Encounter Date Diagnosis (ICD Code) Assessment Notes Treatment Notes Treatment Clinical Notes Section Notes 05/09/2025 Essential hypertensi on (ICD-10 - I10) 05/09/2025 IFG (impaired fastin g glucose) (ICD-10 - R73.01) 05/09/2025 Hypertriglyceridemia (ICD-10 - E78.1) 05/09/2025 Colon cancer screeni ng (ICD-10 - Z12.11) Plan Of Treatment Medication Medication Name Sig Start Date Stop Date Notes Lisinopril-hydroCHLOROthiazi de 10-12.5 MG 1 tab(s) orally once a day; Duration: 90 days Sildenafil Citrate 20 mg TAKE 1-5 TABLET S orally daily Furosemide 20 MG 1 tab(s) orally ever y other day; Duration: 90 days Meloxicam 7.5 mg TAKE ONE TABLET BY M OUTH ONCE A DAY; Duration: 90 days Pending Test Test Name Order Date Cologuard 05/09/2025 Next Appt Details Follow Up: 6 Months, Reason: Provider Name:Idris Cummings , 11/07/2025 09:45:00 AM, [facility] [address] [facility], [address], [place], [place], [id number], Progress Notes * HELENA ANNDOB:1970 ([age] yo M)Acc No.[id number]:05/09/2025 Progress Notes Patient: HELENA CASTILLO Provider: Félix Lucio M.D. :1970 A ge:54 Y S ex:Male Date:05/09/2025 Address:[address] [place], [place] [id number] Pcp:Jumana Frank Subjective: * Chief Complaints: * 1 . 6 month. * HPI: C ardiology: 54 year old male presents with c/o Blood Pressure Elevated P t here to f/u on hypertension. Pt states he is doing well and does [...] 3 ppd average. * Medications: T aking Lisinopril-hydroCHLOROthiazide 10-12.5 MG Tablet 1 tab(s) orally once a day , Taking Furosemide 20 MG Tablet 1 tab(s) orally every other day , Taking Sildenafil Citrate 20 mg Tablet TAKE 1-5 TABLETS BY MOUTH ONCE A DAY NEEDED , Taking Meloxicam 7.5 mg Tablet TAKE ONE TABLET BY MOUTH ONCE A DAY , Medication List reviewed and reconciled with the patient * Allergies: N .K.D.A. Objective: * Vitals: W t: 312, Temp: 98.0, BP: 122/78, HR: 86, Nurse: lin, Ht: 71.50, BMI:42.9. * Examination: C ardiology: General Appearance: p [...] . H ypertriglyceridemia - E78.1 4 . C olon cancer screening - Z12.11 Plan: * Treatment: Value Reference Range A /G Ratio 1.6 1.1-2.5 - * A lbumin 4.8 3.5-5.3 - g/dL * A lkaline Phosphatase 68 40-129 - IU/L * A LT (SGPT) 33 <5-55 - IU/L * A ST (SGOT) 24 <5-46 - IU/L * B ilirubin, Total 0.7 <0.2-1.2 - mg/dL * B UN 16 6-20 - mg/dL * C alcium 9.8 8.6-10.4 - mg/dL * C hloride 101 97-108 - mmol/L * C O2 26 20-32 - mmol/L * C reatinine 1.09 0.70-1.30 - mg/dL * G lucose 102 H 65-99 - mg/dL * P otassium 4.1 3.5-5.3 - mmol/L * S odium 140 135-145 - mmol/L * P rotein 7.8 6.0-8.3 - g/dL * e GFR by Creatinine 81 >59 - mL/min/1.73m2 * Masha Quiroga 05/13/2025 09: 16:28 AM EDT > See phone encounter 2.?IFG (impaired fasting glucose)?LAB: P-Comprehensive Metabolic Panel (CMP) (Collection Date & Time - 05/09/2025 09:04 AM)?Glu 102* Value Reference Range A /G Ratio 1.6 1.1-2.5 - * A lbumin 4.8 3.5-5.3 - g/dL * A lkaline Phosphatase 68 40-129 - IU/L * A LT (SGPT) 33 <5-55 - IU/L * A ST (SGOT) 24 <5-46 - IU/L * B ilirubin, Total 0.7 <0.2-1.2 - mg/dL * B UN 16 6-20 - mg/dL * C alcium 9.8 8.6-10.4 - mg/dL * C hloride 101 97-108 - mmol/L * C O2 26 20-32 - mmol/L * C reatinine 1.09 0.70-1.30 - mg/dL * G lucose 102 H 65-99 - mg/dL * P otassium 4.1 3.5-5.3 - mmol/L * S odium 140 135-145 - mmol/L * P rotein 7.8 6.0-8.3 - g/dL * e GFR by Creatinine 81 >59 - mL/min/1.73m2 * Masha Quiroga 05/13/2025 09: 16:28 AM EDT > See phone encounter ?LAB: Glucose (In-House) (Collection Date & Time - 05/09/2025)?116* Value Reference Range b lood glucose 116 74 - 106 mg/dL * Yesenia Victor 05/09/2025 11:00: 16 AM EDT >Idris Lucio 05/09/2025 02:56:51 PM EDT > ?LAB: Glycohemoglobin A1c (in house) (Collection Date & Time - 05/09/2025)? 5.9* Value Reference Range g lycohemoglobin 5.9% 5 - 6.5 % * Yesenia Victor 05/09/2025 11:00: 32 AM EDT >Idris Lucio T 05/09/2025 02:56:42 PM EDT > 3.?Hypertriglyceridemia?LAB: P-Comprehensive Metabolic Panel (CMP) (Collection Date & Time - 05/09/2025 09:04 AM)?Glu 102* Value Reference Range A /G Ratio 1.6 1.1-2.5 - * A lbumin 4.8 3.5-5.3 - g/dL * A lkaline Phosphatase 68 40-129 - IU/L * A LT (SGPT) 33 <5-55 - IU/L * A ST (SGOT) 24 <5-46 - IU/L * B ilirubin, Total 0.7 <0.2-1.2 - mg/dL * B UN 16 6-20 - mg/dL * C alcium 9.8 8.6-10.4 - mg/dL * C hloride 101 97-108 - mmol/L * C O2 26 20-32 - mmol/L * C reatinine 1.09 0.70-1.30 - mg/dL * G lucose 102 H 65-99 - mg/dL * P otassium 4.1 3.5-5.3 - mmol/L * S odium 140 135-145 - mmol/L * P rotein 7.8 6.0-8.3 - g/dL * e GFR by Creatinine 81 >59 - mL/min/1.73m2 * Masha Quiroga 05/13/2025 09: 16:28 AM EDT > See phone encounter ?LAB: P-Lipid Panel (Collection Date & Time - 05/09/2025 09:04 AM)?Trigs 281, HDL 34, Chol/HDL 5.59, Non-HDL 156* Value Reference Range C holesterol / HDL Ratio 5.59 H 0.00-4.99 - Ratio * C holesterol 190 <200 - mg/dL * H DL Cholesterol 34 L >39 - mg/dL * L DL Cholesterol (Calculation) 100 <130 - mg/d L * L DL/HDL Ratio 2.9 <3.3 - Ratio * N on-HDL Cholesterol 156 H <130 - mg/dL * T riglycerides 281 H <150 - mg/dL * Masha Quiroga 05/13/2025 09: 16:28 AM EDT > See phone encounter 4.?Colon cancer screening?LAB: Cologuard5.?Others? Refill Meloxicam Tablet, 7.5 mg, TAKE ONE TABLET BY MOUTH ONCE A DAY, 90 days, 90, Refills 1;?Refill Sildenafil Citrate Tablet, 20 mg, TAKE 1-5 TABLETS, orally, daily As needed, 60, Refills 5. ? * Procedure Codes: 8 2950 GLUCOSE TEST, 06983 GLYCATED HEMOGLOBIN TEST, Modifiers: QW , 3044F HG A1C LEVEL LT 7.0%, 1036F TOBACCO NON-USER, 3074F SYST BP LT 130 MM HG, 3078F DIAST BP < 80 MM HG * Follow Up: 6 Months * Images: Billing Information: * Visit Code: 82224 Office Visit, Est Pt., Level 4. * Procedure Codes: 76543 GLUCOSE TEST. 22183 GLYCATED HEMOGLOBIN TEST. Modifiers: QW 3044F HG A1C LEVEL LT 7.0%. 1036F TOBACCO NON-USER. 3074F SYST BP LT 130 MM HG. 3078F DIAST BP < 80 MM HG. * Electronic signature of Hafsa Lucio MD on 05/27/2025 at 10:56 AM EDT Sign off status: Pending * Provider: Félix Lucio M.D. Date: 0 05/09/2025 Generated for Delphine al/Faxing/eTransmitting on: 0 05/27/2025 10:56 AM EDT History and Physical Notes * HPI (History of Present Illness) Category Sub-Category Detail Notes Category Not es Cardiology Blood Pressure Elevated Pt here to f/u on hypertension. Pt states he is doing well and does [...]
[2025-05-27 09:03] VITALS: BMI 44.6
--- NOTE | 2025-05-27 10:53 | XR_ITS ---
FINAL REPORT CLINICAL HISTORY: pre op for surgery former smoker x 20 years COMPARISON: None FINDINGS: PA and lateral views of the chest are obtained. There is no prior exam for comparison. The cardiac and mediastinal silhouettes are within normal limits. The lungs are clear. There is no pleural effusion, pneumothorax, or acute osseous abnormality. IMPRESSION: No radiographic evidence of acute cardiac or pulmonary disease. Reviewed, Interpreted and Dictated by Antonieta Mosquera MD Transcribed by Anjelica Michelle Authenticated and [facility]
--- OUTSIDE RECORDS SUMMARY | 2025-05-27 10:56 | XMS_ITS | Patient Health Record ---
Author Organization [facility] Address [address] [place] [id number] Care Team Providers Care Copy Reader Name Role Phone Jumana Frank Primary Care Provider Idris Lucio Unavailable [phone] Allergies No Known Allergies Results Component Value [...] - 38 plat 188 100 - 400 Glucose (In-House) Reviewed date:11/11/2024 08:48:33 AM Interpretation:126 Performing Lab: Notes/Report: 126 blood glucose 126 74 - 106 mg/dL Glycohemoglobin A1c (in hous e) Reviewed date:11/11/2024 08:48:33 AM Interpretation:5.7 Performing Lab: Notes/Report: 5.7 glycohemoglobin 5.7% 5 - 6.5 % P-Comprehensive Metabolic Pa isael ([facility]) Reviewed date:11/11/2024 08:48:33 AM Interpretation:gluc 108 Performing Lab: Notes/Report: Test performed by [facility] , [address], [place] [address] Aroldo Campbell MD, Cluster Bore Operator CLIA: [id number] Sodium 139 135-145 mmol/L Potassium 4.2 3.5-5.3 [...] 34 Performing Lab: Notes/Report: Test performed by [employer], [address] , [address], [place] [address] Aroldo Campbell MD, Cluster Bore Operator CLIA: [id number] Cholesterol 162 <200 mg/dL Triglycerides 164 <150 [...] Normal Performing Lab: Notes/Report: Test performed by [facility] [address] [place] [address] , [address], [place] [address] Aroldo Campbell MD, Cluster Bore Operator CLIA: [id number] PSA 1.32 <4.00 ng/mL Please note this is an ultrasensitive PSA assay with a lower limit of detection of 0.014 ng/mL. This test is performed by the [employer] ECLIA methodology. Values obtained with different assay methods or kits cannot be directly compared. P-TSH Reviewed date:11/11/2024 08:48:33 AM Interpretation: Normal Performing Lab: Notes/Report: Test performed by [facility], [address] , [address], [place] [address] Aroldo Cmapbell MD, Cluster Bore Operator CLIA: [id number] TSH 3.31 0.43-5.25 mU/L P-Microalbumin/Creatinine, R andom Urine Sample Reviewed date:11/11/2024 08:48:33 AM Interpretation: Normal Performing Lab: Notes/Report: Test performed by [facility] [address] , [address], [place] [address] Aroldo Campbell MD, Cluster Bore Operator CLIA: [id number] Albumin/Creatinine Ratio, Urine <4.4 0-30 ug/m g Microalbumin, Urine, Random <0.3 Creatinine, Urine 67.9 Glucose (In-House) Reviewed date:05/09/2025 02:56:55 PM Interpretation:116 Performing Lab: Notes/Report: 116 blood glucose 116 74 - 106 mg/dL Glycohemoglobin A1c (in hous e) Reviewed date:05/09/2025 02:56:46 PM Interpretation:5.9 Performing Lab: Notes/Report: 5.9 glycohemoglobin 5.9% 5 - 6.5 % P-Comprehensive Metabolic Pa isael (CMP) Reviewed date:05/13/2025 09:16:35 AM Interpretation:Glu 102 Performing Lab: Notes/Report: Test performed by [facility] [address] , [address], [place] [address] Aroldo Campbell MD, Cluster Bore Operator CLIA: [id number] Sodium 140 135-145 mmol/L Potassium 4.1 3.5-5.3 [...] 156 Performing Lab: Notes/Report: Test performed by [employer] [employer], [address] , [place] [address] Aroldo Campbell MD, Cluster Bore Operator CLIA: [id number] Cholesterol 190 <200 mg/dL Triglycerides 281 <150 [...] Results: 100 Units: mg/dL % Change: +5% Reason For Referral No Information Medications Medication SIG (Take, Route, Frequency, Duration) [...] ONCE A DAY; Duration: 90 days Active Immunizations Vaccine Route Administration Date Status Comme nts COVID 19 Moderna Unknown 12/29/2020 Administered COVID 19 Moderna Unknown 01/29/2021 Administered Problems Problem Type SNOMED Code ICD Code Onset Dates Problem Status W/U Status Risk Notes Problem Essential hypertension (67438524) Essential hypertension (I10) Active confirmed Problem Morbid obesity (139614158) Morbid obesity (E66.01) Active confirmed Problem Hypertriglyceridemia (082427631) Hypertriglyceridemia (E78.1) Active confirmed Problem Erectile dysfunction (disorder) (202065895) Erectile dysfunction, unspecified erectile dysfunction type (N52.9) Active confirmed Problem Sleep apnea (74034377) Sleep apnea, unspecified type (G47.30) Active confirmed Problem Impaired fasting glycaemia (812265149) IFG (impaired fasting glucose) (R73.01) Active confirmed Vital Signs Heart Rate 86 /min 05/09/2025 Blood pressure diastolic 78 mm Hg 05/09/2025 Height 71.50 in 05/09/2025 Blood pressure systolic 122 mm Hg 05/09/2025 Weight 312 lbs 05/09/2025 BMI 42.9 kg/m2 05/09/2025 Encounters Encounter Location Date Provider Diagnosis [place] [address] [place] [facility] [address] [place], [place] [id number] 10/04/2024 Idris Hettinger Acute cough R05.1 [facility] [facility] [address] [place], [place] [id number] 11/08/2024 Idris Hettinger Essential hypertensi on I10 ; IFG (impaired fasting glucose) R73.01 ; Hypertriglyceridemia E78.1 ; Sleep apnea, unspecified type G47.30 ; Morbid obesity E66.01 and Prostate cancer screening Z12.5 [facility] [facility] [address] [place], [place] [id number] 05/09/2025 Idris Hettinger Essential hypertensi on I10 ; IFG (impaired fasting glucose) R73.01 ; Hypertriglyceridemia E78.1 and Colon cancer screening Z12.11 [facility] [facility] [address] [place], [place] [id number] 11/11/2024 Idris Hettinger [facility] [facility] [address] [place], [place] [id number] 05/13/2025 Idris Hettinger Assessments Encounter Date Diagnosis (ICD Code) Assessment Notes Treatment Notes Treatment Clinical Notes Section Notes 10/04/2024 Acute cough (ICD-10 - R05.1) 11/08/2024 Essential hypertensi on (ICD-10 - I10) 11/08/2024 IFG (impaired fastin g glucose) (ICD-10 - R73.01) 05/09/2025 Essential hypertensi on (ICD-10 - I10) 05/09/2025 IFG (impaired fastin g glucose) (ICD-10 - R73.01) 05/09/2025 Hypertriglyceridemia (ICD-10 - E78.1) 11/08/2024 Hypertriglyceridemia (ICD-10 - E78.1) 11/08/2024 Sleep apnea, unspeci fied type (ICD-10 - G47.30) 05/09/2025 Colon cancer screeni ng (ICD-10 - Z12.11) 11/08/2024 Morbid obesity (ICD- 10 - E66.01) 11/08/2024 Prostate cancer screening (ICD-10 - Z12.5) Plan Of Treatment Pending Test Test Name Order Date Cologuard 05/09/2025 Next Appt Details Provider Name:Idris Cummings ry, 11/07/2025 09:45:00 AM, [address] [facility], [address], [place], [place], [id number], Insurance Providers Payer Name Payer Address Payer Phone Subscriber Number Group Number Insured Name Patient Relationship to Insured Coverage Start Date Coverage End Date BRIAN ALMENDAREZ [employer] [address] [place] [address] [id number] HELENA ANN Self - patient is the insured Medical (General) History Medical History History ICD Code Hypertension Sleep Apnea Testosterone Deficiency, s/p Urology junaid denia 2019 Glaucoma, Dx: 2020 Hypertriglyceridemia HDL Deficiency Surgical History Surgery Date(Month/Year) Hospitalization History Reason Date(Month/Year)
--- NOTE | 2025-05-27 11:14 | ECG_ITS ---
APPROVED REPORT Exam: Resting ECG HR:79 bpm ECG Measurements Heart Rate 79 AXES WI 173 P 13 QRSd 95 QRS 55 QT 362 T 40 QTc 396 Conclusion SINUS RHYTHM NORMAL ECG UNCONFIRMED REPORT Electronically signed by : Malcolm Schaeffer MD 05/27/2025 19:03:40
[2025-05-27 11:28] LABS: Hematocrit 44.1 % (42.0-52.0); Hemoglobin 14.7 g/dL (14.1-18.0); Immature Granulocytes % 0.8 %; Mean Corpuscular HGB Conc 33.3 g/dL (31.8-35.4); Mean Corpuscular Hemoglobin 26.8 pg (27.0-31.2); Mean Corpuscular Volume 80.3 fl (80-94); Nucleated Red Blood Cells % 0 %; Platelet Count 221 K/mm3 (142-424); Red Blood Count 5.49 M/mm3 (4.60-6.20); Red Cell Distribution Width-SD 39.7 fL; White Blood Count 8.3 K/mm3 (4.8-10.8)
[2025-05-27 11:34] LABS: Chloride 100 mmol/L (98-107); Potassium 3.8 mmoL/L (3.5-5.1); Sodium 139 mmol/L (136-145)
[2025-05-27 11:37] LABS: Anion Gap 14.8 mEq/L (5-15); Blood Urea Nitrogen 17 mg/dl (9-20); Carbon Dioxide 28 mmol/L (22.0-30.0); Creatinine Clearance Estimated 114 mL/min (50-200); Creatinine,Serum 0.80 mg/dl (0.66-1.25); Estimated Glomerular Filt Rate 101 ml/min (>60); GFR (African American) 122 ML/MIN (>60)
[2025-05-27 11:38] LABS: Calcium 9.3 mg/dl (8.4-10.2); Glucose 110 mg/dl (74-100)
== END 2025-05-27 23:59 | disposition home or self-care (01) ==
LOC: PREOP 10:51
PROVIDERS: PCP Family Medicine; Visit Provider Orthopaedic Surgery
DX: Z01.810 Encounter for preprocedural cardiovascular examination (principal); Z01.811 Encounter for preprocedural respiratory examination; Z01.812 Encounter for preprocedural laboratory examination; Z87.891 Personal history of nicotine dependence
CPT/HCPCS: 71046; 80048; 85025; 93005

== ENCOUNTER 2025-06-03 06:38 | Day surgery (SDC) | payer OTHER, BC, SELFPAY ==
[2025-05-27 14:28] VITALS: BMI 44.6
[2025-06-03] VITALS (10 sets, daily range): BP systolic 108–147; BP diastolic 60–83; PULSE 75–91; RESP 14–20; TEMP 36.3–36.6; O2SAT 90–98; BMI 44.6
[2025-06-03] MEDS: LACTATED RINGERS 1000ML 1,000 ML 100 ML IV (07:43)
[2025-06-03] MEDS: CEFAZOLIN 2GM VIAL 2 GM (08:12)
[2025-06-03] MEDS: 0.9 % SODIUM CHLORIDE 100 ML 200 ML IV (08:12)
[2025-06-03] MEDS: RINGERS SOLUTION,LACTATED 12,000 ML 25 ML IR (08:43)
[2025-06-03] MEDS: BUPIVACAINE 0.25% 30ML VIAL 75 MG (08:43)
--- NOTE | 2025-06-03 08:47 | EXP.ANES.CKL ---
[facility] Disclaimer: The information contained in this section may have been updated after the patient was seen, as this information can be updated by other users. Medical History Glaucoma Hypertension RUDDY (obstructive sleep apnea) Surgical History History of wisdom tooth extraction Family History Other Cancer Coronary artery disease Hyperlipidemia Hypertension RUDDY (obstructive sleep apnea) Stroke Social History (Updated 06/03/25 @ 07:24 by Esperanza Russell RN) Smoking Status: Former smoker alcohol intake: never substance use type: denies use current occupational status: employed Travel in the last 8 weeks?: None household members: spouse and children housing: house Have you lived/traveled outside US in past 30 days?: No Contact w/someone who lives/traveled outside US past 30 days?: No Exposure to someone with infectious disease in past 14 days?: No Do you have a fever (greater than 100.4 F or 38 C)?: No Have you tested positive for COVID-19?: No Exposed to someone with COVID-19 in past 14 days?: No Do you have a sore throat?: No Do you have a cough?: No Do you have any weakness?: No Are you experiencing any nausea/vomitting?: No Do you have any diarrhea?: No Are you experiencing any unusual bleeding?: No Do you have any muscle aches/pain?: No Do you have any abdominal pain?: No Are you experiencing loss of taste or smell?: No [facility] Anesthesia Checklist Patient Identification Patient Identification: Verbal (Name & ) Structural Data Admitted From: Home Planned Operative Procedure/s: r knee arthroscopy NPO Status Verified Time NPO: 00:00 Airway Assessment Mallampati Score:: Class II C-Spine Mobility Assessed: Yes TMJ Mobility Assessed: Yes Dentition: Good Dentition Neurological Assessment Level of Consciousness: Awake, Alert and Appropriate Anesthesia Plan Anesthesia Risk discussed: Yes Anesthesia Plan: Verified ASA Class: II Anesthesia Type: General
--- NOTE | 2025-06-03 09:20 | P.PNANES_ITS ---
[facility] Anesthesia Record Part I Anesthesia Record I Intake, IV Amount: 1,400 Hydration: Adequate Estimated blood loss (mL): 0 Urine output (mL): 0 Blood Pressure: 147/73 SaO2: 94 Pulse Rate: 87 Airway Patency: Patent Respiratory Rate: 14 Temperature: 97.5 F Patient is:: Awake and Stable Stable to PACU at:: 09:17
--- NOTE | 2025-06-03 09:38 | P.OP_ITS ---
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 Right knee marked with yes and my initials. Transported operative suite. Placed upon operating bed. General anesthesia administered airway secured. Right lower extremity prepped and draped within the knee laird. Once prepped and draped final operative timeout performed to identify proper patient procedure and extremity. Everyone involved in the case agreed. There is no counter indication beginning. Did receive preoperative antibiotics. Marking pen was used to sarah the bony landmarks of the knee and standard portal sites. Esmarch was used to exsanguinate the extremity pneumatic tourniquet inflated to 300 mmHg. Skin knife was used to incise standard anterior lateral portal and blunt with trocar was placed in the patellofemoral joint. The system exchanged with a camera. I swept directly into the medial joint line where the anterior medial portal was made with the help of an 18-gauge spinal needle. Within the medial joint line there was evidence of a complex tear of the posterior horn of the medial meniscus using a combination of straight biter sucker shaver and electrocautery partial medial meniscectomy was performed back to [facility]. Knee was taken through flexion extension. There was evidence of grade III chondromalacia of the medial femoral condyle with softening of the cartilage no full-thickness cartilage lesion was seen. Tendons brought in the intercondylar notch the ACL was seen and intact. Attention is brought to the lateral joint line lateral meniscus intact lateral cartilage intact. Scope into the medial gutter there was some significant synovitis in the patellofemoral joint grade III chondromalacia of the patella and trochlea 1 area of grade IV chondromalacia undersurface of the patella. The medial gutter was clear the lateral gutter had some loose bodies which were removed with the sucker shaver. Patella tracked midline in the trochlea. Camera is removed the joint was drained local anesthesia infiltrated to the portal sites. Nylon stitch placed for portal sites. Sterile dressing placed from toe to thigh patient waken anesthesia taken recovery stable condition. Condition: stable Disposition: PACU Complications:: None apparent
--- NOTE | 2025-06-03 10:00 | SUR.PHASEI ---
pt was transferred to post-op by this nurse at this time. hand off report was given to SUSANA Mata. of pt was brought to the bedside upon transfer. Pain controlled, no complaints at this time.
--- NOTE | 2025-06-03 11:39 | EXP.ANES.II ---
[facility] Anesthesia Record Part II Anesthesia Record Part II Discharge Time: 10:31 Destination: Surgical Day Care (OP Surgery) PACU nurse assessment reviewed?: Yes Patient Condition:: Good Anesthesia Complications:: None Swallowing reflex intact?: Yes Airway Patency: Patent Cyanosis?: No Blood Pressure: 130/82 SaO2: 95 Respiratory Rate: 20 Pulse Rate: 75 Temperature: 97.8 F Mental Status: Alert & Oriented Pain level:: 0 Nausea and/or vomitting:: None Intake, IV Amount: 0 Hydration: Adequate
== END 2025-06-03 10:31 | disposition home or self-care (01) ==
PROVIDERS: PCP Family Medicine; Visit Provider Orthopaedic Surgery
PROC: (CPT 29870; principal; 2025-06-03 08:15)
DX: S83.231A Complex tear of medial meniscus, current injury, right knee, initial encounter (principal); X58.XXXA Exposure to other specified factors, initial encounter; M94.271 Chondromalacia, right ankle and joints of right foot; I10 Essential (primary) hypertension; G47.33 Obstructive sleep apnea (adult) (pediatric); Z87.891 Personal history of nicotine dependence; Z79.899 Other long term (current) drug therapy
CPT/HCPCS: 29881; 96374; J0665; J0690; J1100; J2003; J2250; J2405; J2704; J3010; J7120

== ENCOUNTER 2025-07-07 08:39 | Outpatient (RCR) | payer OTHER, SELFPAY ==
--- NOTE | 2025-07-07 09:47 | HMH.PTOPEV ---
PT Evaluation Rehab PT Outpatient Evaluation Start: 07/07/25 08:42 Freq: Status: Active Protocol: Document 07/07/25 08:42 UVALDO (Rec: 07/07/25 09:46 ZEVELINAJERSEY [id number]) E-signed By Ata Dahl, PT Outpatient Therapy Subjective History Subjective History Pt is a 54 yom who presents s/p R knee arthroscopy with medial meniscectomy performed on 06/03/25. Pt reports that he has been doing very well since surgery. Pt reports that he will occasionally have a slight twinge when he goes to turn or walk on unstable ground but other than that, he is doing well. Pt reports that he still is unable to be up on his feet for longer periods without it hurting. Pt denies swelling. Pt reports that he is back to work but he is light-duty at work, but is planning to get back to his normal duties soon. Pt reports that one of his biggest difficulties is going up/down stairs and up/down an incline. Pt reports that he used crutches for a few days and then used a cane for approximately one week. Occupation: [employer] PMH: Glaucoma Hypertension Normotensive URDDY (obstructive sleep apnea) Moderate to severe RUDDY, excellent compliance with AutoPap with ongoing symptomatic improvement. New diagnosis of No cancer in past 12 months? Chief Complaint Pain,Stiff Symptom Type Ache,Sharp Symptoms Relieved By Ice Symptoms Aggravated Standing,Walking,Lifting By Prior Functional None Limitations Current Functional Lifting,Standing,Squatting,Walking,Stairs Limitations Symptom Description Intermittent,Activity Dependent Level of pain today 0 (0-10) Pain scale - at its 0 best (0-10) Pain scale - at its 3 worst (0-10) Hip/Knee Eval Gait Observation General Gait Pattern Antalgic Gait,Decrease Weight Bear (R),Decrease Stride Observation Lngth (L) Palpation Tenderness right Knee Palpation Tenderness Finding Knee Palpation 2/4 TTP Overall Comment MMT Hip Flexion Strength 4+ Good+ Grade Hip Abduction 4 Good Strength Grade Knee Extension 4+ Good+ Strength Grade Knee Flexion 4+ Good+ Strength Grade ROM Knee Extension 0 Active Range of Motion (degrees) Knee Flexion Active 135 Range of Motion ( degrees) Lower Extremity Functional Index Activities Today, do you or would you have any difficulty at all with: a.Any of your usual A little bit of difficulty work, housework or school activities b. Your usual A little bit of difficulty hobbies, recreational or sporting activities c. Getting into or A little bit of difficulty out of the bath d. Walking between No difficulty rooms e. Putting on your No difficulty shoes or socks f. Squatting A little bit of difficulty g. Lifting an object A little bit of difficulty , like a bag of groceries from the floor h. Performing light No difficulty activities around your home i. Performing heavy A little bit of difficulty activities around your home j. Getting into or No difficulty out of a car k. Walking 2 blocks No difficulty l. Walking a mile Moderate difficulty m. Going up or down A little bit of difficulty 10 stairs (about 1 flight of stairs) n. Standing for 1 No difficulty hour o. Sitting for 1 No difficulty hour p. Running on even Moderate difficulty ground q. Running on uneven Quite a bit of difficulty ground r. Making sharp Moderate difficulty turns while running fast s. Hopping Moderate difficulty t. Rolling over in A little bit of difficulty bed LEFI Score Lower Extremity 61 Functional Index Score Outpatient Therapy Assessment Impairments Problems/ Palpation Tenderness,Impaired Strength,Impaired Gait Impairmments Pattern,Impaired Walking,Impaired Standing,Impaired Lifting,Impaired Household Care,Impaired Stair Climbing ,Impaired Squatting,Impaired Balance,Subjective C/O Pain Prognosis Rehab Potential Good Clinical Impression Consistent with Yes Diagnosis Consistent with s/p R Knee meniscectomy PT Patient Goals PT Patient Goals PT Short Term In 2 weeks: Patient Goals 1. Patient will improve LEFS score to 70/80 to demonstrate improved functional mobility and increased independence with ADLs. 2. Patient will improve strength of R hip abd to 4+/5 globally to improve gait mechanics, improve static/ dynamic balance and to decrease fall risk. 3. Patient will demonstrate improved balance by performing tandem walking on an unstable surface for 10 feet without loss of balance or needed market research assistant to demonstrate a reduced fall risk and improved community ambulation. 4. Patient will demonstrate improved balance by maintaining tandem stance for 30s with each foot placed forward, on an unstable surface, without upper extremity support to demonstrate a reduced fall risk. PT Fdc Patient In 4 weeks: Goals 1. Patient will improve LEFS score to 75/80 to demonstrate improved functional mobility and increased independence with ADLs. 2. Patient will improve strength of R hip abd and knee flexion/extension to 5/5 globally to improve gait mechanics, improve static/dynamic balance and to decrease fall risk. 3. Patient will return to full work duties without increasing symptoms. 4. Patient will be ablet to ascend/descend a flight of stairs without increasing symptoms and a reciprocal stepping pattern. Outpatient Therapy Plan of Care Treatment Plan May Include Therapeutic Exercise Yes Including Home Exercise Program Manual Therapy Yes Techniques Neuromuscular Re- Yes education Therapeutic Yes Activities to Return to Previous Functional/Work Level Gait Training Yes ADL/Self Care Yes Education Thermal Modalities Yes Electrical Yes Stimulation Manual Lymphatic Yes Drainage Eval/Re-Eval Yes Frequency Times per week 1 Duration Number of Weeks 4 Addendums This patient is a No candidate for social or vocational rehab ? Patient/Guardian Yes verbally acknowledges understanding of treatment program and consents to further treatment? Patient/Guardian Yes verbally acknowledges understanding of diagnosis, prognosis and goals for treatment? Eval Complexity PT Charges 70773 - Low Complexity Shoulder/Elbow Eval Shoulder Objective Measurements Elbow Objective Measurements PHYSICIAN CERTIFICATION: I certify the specified therapy services for Seamus Tafoya are required, authorized, and reviewed every 30 days.
== END 2025-07-07 23:59 | disposition home or self-care (01) ==
LOC: PT 08:39
PROVIDERS: Visit Provider Orthopaedic Surgery
DX: S83.249A Other tear of medial meniscus, current injury, unspecified knee, initial encounter (principal)
CPT/HCPCS: 97161; 97530

== ENCOUNTER 2025-08-12 10:00 | Outpatient (RCR) | payer OTHER, SELFPAY ==
--- NOTE | 2025-08-06 12:05 | [facility].RHREAS ---
Rehab Reassessment Rehab OP Re-assessment Start: 07/22/25 09:44 Freq: Status: Active Protocol: Document 08/06/25 11:04 [email or web address] (Rec: 08/06/25 12:05 BROOKE [id number]) E-signed By Yadi Wagner PT Lower Extremity Functional Index Activities Today, do you or would you have any difficulty at all with: a.Any of your usual A little bit of difficulty work, housework or school activities b. Your usual A little bit of difficulty hobbies, recreational or sporting activities c. Getting into or No difficulty out of the bath d. Walking between No difficulty rooms e. Putting on your No difficulty shoes or socks f. Squatting No difficulty g. Lifting an object No difficulty , like a bag of groceries from the floor h. Performing light No difficulty activities around your home i. Performing heavy A little bit of difficulty activities around your home j. Getting into or No difficulty out of a car k. Walking 2 blocks No difficulty l. Walking a mile A little bit of difficulty m. Going up or down A little bit of difficulty 10 stairs (about 1 flight of stairs) n. Standing for 1 No difficulty hour o. Sitting for 1 No difficulty hour p. Running on even No difficulty ground q. Running on uneven A little bit of difficulty ground r. Making sharp A little bit of difficulty turns while running fast s. Hopping No difficulty t. Rolling over in No difficulty bed LEFI Score Lower Extremity 73 Functional Index Score Rehab Re-assessment Subjective Subjective Pt reports he feels 80-90% improved since starting PT. Pt reports some discomfort of the R medial knee with walking >45 minutes, descending>ascending inclines and kneeling on the R knee. Pt rates discomfort as 2/10 at worst on VAS that is brief in nature and improves with rest. Pt denies issues with stair climbing. Pt denies sense of knee instability. Pt reports he is still light duty at work which excludes ladder climbing and kneeling although states it is rare he has to perform such activities. Pt reports he returns to his surgeon next . Objective Objective Notes R knee AROM: WNL R knee palpation: 0/4 TTP noted of R knee complex RLE MMT: hip flex 4+/5, hip abd 4+/5, hip add 5/5, hip ext 5/5, knee flex 5/5, knee ext 5/5 Gait: non-antalgic Balance: Tandem stance 30 unstable surface without LOB , Tandem walking unstable surface x10' without LOB or report of knee instability Assessment Progress Assessment Progressing as Expected Assessment Notes Pt has attended 6 PT treatment sessions consisting of aerobic exercise, RLE strengthening, RLE stretching, knee stabilization exercises and HEP with good tolerance. Pt demonstrated improved tenderness to palpation, strength and knee stability this date compared to the initial evaluation. 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 Overall, the pt would continue to benefit from skilled PT to further improve subjective report of pain, strength and functional/occupational activity tolerance to assist with return to previous level of function. PT Patient Goals PT Short Term ST/4 Patient Goals 1. Patient will improve LEFS score to 70/80 to demonstrate improved functional mobility and increased independence with ADLs. -MET 2. Patient will improve strength of R hip abd to 4+/5 globally to improve gait mechanics, improve static/ dynamic balance and to decrease fall risk. -MET 3. 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 -MET 4. Patient will demonstrate improved balance by maintaining tandem stance for 30s with each foot placed forward, on an unstable surface, without upper extremity support to demonstrate a reduced fall risk. 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 Patient will improve LEFS score to 75/80 to demonstrate improved functional mobility and increased independence with ADLs. -NOT MET 2. Patient will improve strength of R hip abd and knee flexion/extension to 5/5 globally to improve gait mechanics, improve static/dynamic balance and to decrease fall risk. -NOT MET 3. Patient will return to full work duties without increasing symptoms. -NOT MET 4. Patient will be able to ascend/descend a flight of stairs without increasing symptoms and a reciprocal stepping pattern. -MET Plan Plan Continue initial POC. This noted will be sent to the referring provider for signature this date. Frequency of Therapy 1-2x/week Duration of Therapy 2-4 more weeks Therapeutic Exercise Yes Including Home Exercise Program Manual Therapy Yes Techniques Neuromuscular Re- Yes education Therapeutic Yes Activities to Return to Previous Functional/Work Level Gait Training Yes ADL/Self Care Yes Education Thermal Modalities Yes Electrical Yes Stimulation Ultrasound/ Yes Phonophoresis Iontophoresis Yes Orthotics/Bracing/ Yes Splinting Vasopneumatic Yes Compression Pump Massage Yes Eval/Re-Eval Yes Time and Billing Re-Eval Time 11 Re-Eval Billing 0 Units Charge for PT No reassessment? Charge for OT No reassessment? PHYSICIAN CERTIFICATION: I certify the specified therapy services for Seamus Tafoya are required, authorized, and reviewed every 30 days.
== END 2025-08-12 23:59 | disposition home or self-care (01) ==
LOC: PT 10:00
PROVIDERS: Visit Provider Orthopaedic Surgery
DX: S83.241A Other tear of medial meniscus, current injury, right knee, initial encounter (principal)
CPT/HCPCS: 97110; 97530